=== PATIENT | male | born 1965 | race African-American/Black ===

== ENCOUNTER 2018-03-13 11:37 | Inpatient (IN) | payer OTHER, MEDICAID ==
[2018-03-13] MEDS: DIATR MEGLU/DIATRIZOATE SODIUM 120 ML BTL PO (13:21)
[2018-03-13 13:55] LABS: AADO2 Arterial 70.7 mmHg (7.0-24.0); Allen Test ACCEPTAB; Arterial Base Excess 2.2 mmol/L (-3.0-3); Arterial Blood Gas Oxygen Sat 95.4 mmHG (95.0-98.0); Arterial COHb 0.1 % (0.0-3.0); Arterial Fraction of Oxyhgb 94.9 % (93.0-99.0); Arterial HCO3 27.5 mmol/L (22.0-26.0); Arterial MetHb 0.4 % (0.0-1.5); Arterial Total Hemglobin 15.3 g/dl (12.0-18.0); Arterial pCO2 45.2 mmhg (35-45); MODE TRACH COLLAR; Site Right Radial
[2018-03-13 17:51] LABS: WHITE BLOOD COUNT 4.8 10^3/ul (4.8-10.8)
[2018-03-13 17:51] LABS: HEMATOCRIT 44.5 % (42.0-52.0); HEMOGLOBIN 14.8 g/dl (14.0-18.0); MEAN CORPUSCULAR HEMOGLOBIN 29.1 pg (29.0-33.0); MEAN CORPUSCULAR HGB CONC 33.3 g/dl (32.0-37.0); MEAN CORPUSCULAR VOLUME 87.4 fl (82.0-101.0); MEAN PLATELET VOLUME 10.2 fl (7.4-10.4); PLATELET COUNT 328 10^3/UL (140-415); RED BLOOD COUNT 5.09 10^6/ul (4.70-6.10); RED CELL DISTRIBUTION WIDTH 14.6 % (11.5-14.5)
[2018-03-13 17:52] LABS: ADD MAN DIFF? YES
[2018-03-13] MEDS: SOD CHLORIDE 0.9% 1,000 ML IV (17:58)
[2018-03-13 18:11] LABS: INR 1.09; PARTIAL THROMBOPLASTIN TIME 34.3 Sec (25.0-35.0); PROTIME 14.2 Sec (11.9-14.9); PT RATIO 1.1
[2018-03-13 18:49] LABS: ANISOCYTOSIS 1+ (0-0); EOSINOPHILS % (M) 14 % (0-7); GIANT THROMBO% (M) 1 % (0-0); LYMPHOCYTES #M 1.5 10^3/ul (0.8-2.9); LYMPHOCYTES % (M) 33 % (15-51); MICROCYTOSIS 1+ (0-0); MONOCYTE #M 0.7 10^3/ul (0.3-0.9); MONOCYTES % (M) 15 % (0-11); PLATELET ESTIMATE NORMAL; REACTIVE LYMPHOCYTES% (M) 2 % (0-0); SEGMENTED NEUTROPHILS (M) % 36 % (39-77); SMUDGE%M 4 % (0-0)
[2018-03-13] MEDS ORDERED: NACL 0.9% 3 ML SYG IV (19:00)
[2018-03-13] MEDS ORDERED: HEPARIN SODIUM PORCINE IJ (19:00)
[2018-03-13] MEDS ORDERED: morphine 2 MG INJ IV (19:00)
[2018-03-13] MEDS ORDERED: HYDROCODONE/APAP (5/325) TAB PO (19:00)
[2018-03-13] MEDS ORDERED: [UNRECOGNIZED DRUG - OTHER] IJ (19:00)
[2018-03-13] MEDS ORDERED: LORAZEPAM 2 MG INJ IV (19:00)
[2018-03-13] MEDS ORDERED: NITROGLYCERIN (SL) 0.4 MG TAB SL (19:00)
[2018-03-13] MEDS ORDERED: NA PHOSPHATE/BIPHOS 133 ML ENEMA PR (19:00)
[2018-03-13] MEDS ORDERED: ONDANSETRON 4 MG INJ IV (19:00)
[2018-03-13] MEDS ORDERED: hydrALAzine 20 MG INJ IV (19:00)
[2018-03-13] MEDS ORDERED: ALBUTEROL/IPRATROPIUM (NEB) 3 ML AMP HHN (19:00)
[2018-03-13] MEDS ORDERED: DOCUSATE SODIUM 100 MG CAP PO (19:00)
[2018-03-13 19:18] LABS: ALANINE AMINOTRANSFERASE 62 IU/L (13-69); ALBUMIN 4.6 g/dl (3.3-4.9); ALBUMIN/GLOBULIN RATIO 1.15; ALKALINE PHOSPHATASE 430 IU/L (42-121); ANION GAP 11 (8-16); ASPARTATE AMINO TRANSFERASE 53 IU/L (15-46); BILIRUBIN,INDIRECT 0.4 mg/dl (0-1.1); BILIRUBIN,TOTAL 0.4 mg/dl (0.2-1.3); BLOOD UREA NITROGEN 10 mg/dl (7-20); CALCIUM 9.7 mg/dl (8.4-10.2); CARBON DIOXIDE 27 mmol/L (21-31); CHLORIDE 106 mmol/L (97-110); CREATININE 0.71 mg/dl (0.61-1.24); GLUCOSE 100 mg/dl (70-220); LIPASE 247 U/L (23-300); POTASSIUM 4.8 mmol/L (3.5-5.1); SODIUM 139 mmol/L (135-144); TOTAL PROTEIN 8.6 g/dl (6.1-8.1)
[2018-03-13 20:52] LABS: FREE T4 (FREE THYROXINE) 1.19 ng/dl (0.64-1.79)
[2018-03-13] MEDS: HEPARIN 5,000 UNIT/0.5 ML VIAL SC (21:30)
[2018-03-13] MEDS: SOD CHLORIDE 0.45% 1,000 ML IV (21:31)
[2018-03-14] MEDS ORDERED: PENDING SANTYL ORDER FOR WOUND CARE XX (02:00)
[2018-03-14] MEDS ORDERED: DEXTROSE 50% 50 ML SYRINGE IV ×2 (04:30)
[2018-03-14] MEDS ORDERED: GLUCAGON 1 MG INJ IM (04:30)
[2018-03-14] MEDS ORDERED: GLUCOSE GEL 15 GRAM TUBE BUCCAL (04:30)
[2018-03-14] MEDS ORDERED: GLUCOSE GEL 15 GRAM TUBE PO ×2 (04:30)
[2018-03-14] MEDS ORDERED: PANTOPRAZOLE 40 MG INJ (04:43)
[2018-03-14] MEDS: DEXTROSE 5%-0.45% NACL 1,000 ML IV ×2 (04:45→17:48)
[2018-03-14] MEDS: INSULIN ASPART [NOVOLOG] 3 ML PEN SC ×5 (05:00→20:59)
[2018-03-14] MEDS: PANTOPRAZOLE 40 MG INJ IV (05:01)
[2018-03-14 05:46] LABS: ADD MAN DIFF? NO
[2018-03-14 05:49] LABS: BASOPHIL # 0.1 10^3/ul (0.0-0.1); BASOPHILS % 1.2 % (0.0-2.0); EOSINOPHILS # 0.6 10^3/ul (0.0-0.5); EOSINOPHILS % 11.4 % (0.0-7.0); HEMATOCRIT 42.2 % (42.0-52.0); HEMOGLOBIN 13.7 g/dl (14.0-18.0); LYMPHOCYTES # 1.2 10^3/ul (0.8-2.9); LYMPHOCYTES % 23.3 % (15.0-51.0); MEAN CORPUSCULAR HEMOGLOBIN 28.3 pg (29.0-33.0); MEAN CORPUSCULAR HGB CONC 32.5 g/dl (32.0-37.0); MEAN CORPUSCULAR VOLUME 87.2 fl (82.0-101.0); MEAN PLATELET VOLUME 10.6 fl (7.4-10.4); MONOCYTE # 0.8 10^3/ul (0.3-0.9); MONOCYTES % 14.9 % (0.0-11.0); NEUTROPHIL # 2.4 10^3/ul (1.6-7.5); NEUTROPHILS % 48.6 % (39.0-77.0); PLATELET COUNT 314 10^3/UL (140-415); RED BLOOD COUNT 4.84 10^6/ul (4.70-6.10); RED CELL DISTRIBUTION WIDTH 14.9 % (11.5-14.5)
[2018-03-14 05:59] LABS: HEMOGLOBIN A1C 5.8 % (0-5.9)
[2018-03-14 06:13] LABS: CHOLESTEROL 250 mg/dl (100-200)
[2018-03-14 06:13] LABS: HDL CHOLESTEROL 50 mg/dl (28-71); LDL CHOLESTEROL,CALCULATED 187 mg/dl; TRIGLYCERIDES 64 mg/dl (0-149)
[2018-03-14 08:10] LABS: ANION GAP 11 (8-16); BLOOD UREA NITROGEN 10 mg/dl (7-20); CALCIUM 9.2 mg/dl (8.4-10.2); CARBON DIOXIDE 23 mmol/L (21-31); CHLORIDE 111 mmol/L (97-110); CREATININE 0.68 mg/dl (0.61-1.24); GLUCOSE 95 mg/dl (70-220); MAGNESIUM 1.9 mg/dl (1.7-2.5); PHOSPHORUS 3.2 mg/dl (2.5-4.9); POTASSIUM 4.2 mmol/L (3.5-5.1); SODIUM 141 mmol/L (135-144)
[2018-03-14] MEDS: HEPARIN 5,000 UNIT/0.5 ML VIAL SC ×2 (08:43→21:04)
[2018-03-14 10:02] LABS: HEPATITIS B SURFACE ANTIGEN NEGATIVE (NEGATIVE)
[2018-03-14 10:19] LABS: HEPATITIS C VIRAL ANTIBODY NEGATIVE (NEGATIVE); HIV 1&2 ANTIBODY NEGATIVE (NEGATIVE)
[2018-03-15] MEDS: INSULIN ASPART [NOVOLOG] 3 ML PEN SC ×6 (01:00→21:00)
[2018-03-15] MEDS: PANTOPRAZOLE 40 MG INJ IV (05:19)
[2018-03-15] MEDS: DEXTROSE 5%-0.45% NACL 1,000 ML IV ×2 (05:19→20:02)
[2018-03-15 05:32] LABS: ADD MAN DIFF? NO
[2018-03-15 05:34] LABS: BASOPHILS % 0.5 % (0.0-2.0); EOSINOPHILS # 0.4 10^3/ul (0.0-0.5); EOSINOPHILS % 10.8 % (0.0-7.0); HEMATOCRIT 39.3 % (42.0-52.0); HEMOGLOBIN 13.2 g/dl (14.0-18.0); LYMPHOCYTES # 1.1 10^3/ul (0.8-2.9); LYMPHOCYTES % 28.9 % (15.0-51.0); MEAN CORPUSCULAR HEMOGLOBIN 29.5 pg (29.0-33.0); MEAN CORPUSCULAR HGB CONC 33.6 g/dl (32.0-37.0); MEAN CORPUSCULAR VOLUME 87.7 fl (82.0-101.0); MEAN PLATELET VOLUME 10.8 fl (7.4-10.4); MONOCYTE # 0.5 10^3/ul (0.3-0.9); MONOCYTES % 13.4 % (0.0-11.0); NEUTROPHIL # 1.7 10^3/ul (1.6-7.5); NEUTROPHILS % 45.9 % (39.0-77.0); PLATELET COUNT 261 10^3/UL (140-415); RED BLOOD COUNT 4.48 10^6/ul (4.70-6.10); RED CELL DISTRIBUTION WIDTH 14.4 % (11.5-14.5)
[2018-03-15 05:34] LABS: WHITE BLOOD COUNT 3.8 10^3/ul (4.8-10.8)
[2018-03-15 06:23] LABS: ANION GAP 10 (8-16); BLOOD UREA NITROGEN 7 mg/dl (7-20); CALCIUM 9.2 mg/dl (8.4-10.2); CARBON DIOXIDE 24 mmol/L (21-31); CHLORIDE 110 mmol/L (97-110); CREATININE 0.65 mg/dl (0.61-1.24); GLUCOSE 101 mg/dl (70-220); SODIUM 140 mmol/L (135-144)
[2018-03-15] MEDS: HEPARIN 5,000 UNIT/0.5 ML VIAL SC ×2 (09:09→20:33)
[2018-03-15] MEDS ORDERED: ALBUTEROL 0.083% (NEB) 2.5 MG/3 ML AMP NEB ×2 (12:00)
[2018-03-15] MEDS: PHENOBARBITAL 32.4 MG TAB GTB ×3 (12:20→23:57)
[2018-03-15] MEDS: SACCHAROMYCES BOULARDII 250 MG CAP GTB ×2 (14:51→20:30)
[2018-03-16] MEDS: INSULIN ASPART [NOVOLOG] 3 ML PEN SC ×6 (01:00→21:00)
[2018-03-16 05:31] LABS: ADD MAN DIFF? NO
[2018-03-16 05:35] LABS: BASOPHILS % 0.7 % (0.0-2.0); EOSINOPHILS # 0.4 10^3/ul (0.0-0.5); EOSINOPHILS % 9.6 % (0.0-7.0); HEMATOCRIT 39.3 % (42.0-52.0); HEMOGLOBIN 13.2 g/dl (14.0-18.0); LYMPHOCYTES # 0.8 10^3/ul (0.8-2.9); LYMPHOCYTES % 17.4 % (15.0-51.0); MEAN CORPUSCULAR HEMOGLOBIN 28.8 pg (29.0-33.0); MEAN CORPUSCULAR HGB CONC 33.6 g/dl (32.0-37.0); MEAN CORPUSCULAR VOLUME 85.8 fl (82.0-101.0); MEAN PLATELET VOLUME 10.9 fl (7.4-10.4); MONOCYTE # 0.6 10^3/ul (0.3-0.9); MONOCYTES % 12.8 % (0.0-11.0); NEUTROPHIL # 2.7 10^3/ul (1.6-7.5); NEUTROPHILS % 59.3 % (39.0-77.0); PLATELET COUNT 274 10^3/UL (140-415); RED BLOOD COUNT 4.58 10^6/ul (4.70-6.10); RED CELL DISTRIBUTION WIDTH 14.1 % (11.5-14.5)
[2018-03-16 05:35] LABS: WHITE BLOOD COUNT 4.6 10^3/ul (4.8-10.8)
[2018-03-16] MEDS: PHENOBARBITAL 32.4 MG TAB GTB ×3 (05:36→18:41)
[2018-03-16] MEDS: PANTOPRAZOLE 40 MG INJ IV (05:37)
[2018-03-16 06:04] LABS: ANION GAP 11 (8-16); BLOOD UREA NITROGEN 6 mg/dl (7-20); CALCIUM 9.1 mg/dl (8.4-10.2); CARBON DIOXIDE 25 mmol/L (21-31); CHLORIDE 107 mmol/L (97-110); CREATININE 0.53 mg/dl (0.61-1.24); GLUCOSE 161 mg/dl (70-220); POTASSIUM 3.7 mmol/L (3.5-5.1); SODIUM 139 mmol/L (135-144)
[2018-03-16] MEDS: DEXTROSE 5%-0.45% NACL 1,000 ML IV (09:58)
[2018-03-16] MEDS: SACCHAROMYCES BOULARDII 250 MG CAP GTB ×3 (10:00→20:30)
[2018-03-16] MEDS: HEPARIN 5,000 UNIT/0.5 ML VIAL SC ×2 (10:01→20:59)
[2018-03-16] MEDS ORDERED: morphine LIQ (10 MG/5 ML) CUP PO (13:00)
[2018-03-16] MEDS: ACETAMINOPHEN 325 MG TAB PO (21:08)
[2018-03-17] MEDS: DEXTROSE 5%-0.45% NACL 1,000 ML IV (00:10)
[2018-03-17] MEDS: INSULIN ASPART [NOVOLOG] 3 ML PEN SC ×5 (01:00→18:00)
[2018-03-17] MEDS: PHENOBARBITAL 32.4 MG TAB GTB ×4 (02:22→17:45)
[2018-03-17] MEDS: PANTOPRAZOLE 40 MG INJ IV (05:19)
[2018-03-17 06:42] LABS: ADD MAN DIFF? NO
[2018-03-17 06:47] LABS: WHITE BLOOD COUNT 4.7 10^3/ul (4.8-10.8)
[2018-03-17 06:47] LABS: BASOPHILS % 0.4 % (0.0-2.0); EOSINOPHILS # 0.6 10^3/ul (0.0-0.5); HEMATOCRIT 38.8 % (42.0-52.0); HEMOGLOBIN 12.7 g/dl (14.0-18.0); LYMPHOCYTES # 1.1 10^3/ul (0.8-2.9); LYMPHOCYTES % 22.6 % (15.0-51.0); MEAN CORPUSCULAR HEMOGLOBIN 28.5 pg (29.0-33.0); MEAN CORPUSCULAR HGB CONC 32.7 g/dl (32.0-37.0); MEAN CORPUSCULAR VOLUME 87.2 fl (82.0-101.0); MEAN PLATELET VOLUME 12.2 fl (7.4-10.4); MONOCYTE # 0.6 10^3/ul (0.3-0.9); MONOCYTES % 11.8 % (0.0-11.0); NEUTROPHIL # 2.5 10^3/ul (1.6-7.5); NEUTROPHILS % 52.8 % (39.0-77.0); POSITIVE DIFF @See below; RED BLOOD COUNT 4.45 10^6/ul (4.70-6.10); RED CELL DISTRIBUTION WIDTH 14.3 % (11.5-14.5)
[2018-03-17 07:06] LABS: PLATELET COUNT 168 10^3/UL (140-415)
[2018-03-17 07:14] LABS: ANION GAP 11 (8-16); BLOOD UREA NITROGEN 5 mg/dl (7-20); CALCIUM 8.6 mg/dl (8.4-10.2); CARBON DIOXIDE 23 mmol/L (21-31); CHLORIDE 108 mmol/L (97-110); CREATININE 0.63 mg/dl (0.61-1.24); GLUCOSE 116 mg/dl (70-220); POTASSIUM 3.7 mmol/L (3.5-5.1); SODIUM 138 mmol/L (135-144)
[2018-03-17 07:23] LABS: ALANINE AMINOTRANSFERASE 88 IU/L (13-69); ALBUMIN 3.5 g/dl (3.3-4.9); ALKALINE PHOSPHATASE 244 IU/L (42-121); ASPARTATE AMINO TRANSFERASE 106 IU/L (15-46); BILIRUBIN,INDIRECT 0.4 mg/dl (0-1.1); BILIRUBIN,TOTAL 0.4 mg/dl (0.2-1.3); TOTAL PROTEIN 6.7 g/dl (6.1-8.1)
[2018-03-17] MEDS: HEPARIN 5,000 UNIT/0.5 ML VIAL SC ×2 (09:06→20:18)
[2018-03-18] MEDS: PHENOBARBITAL 32.4 MG TAB GTB ×4 (01:06→17:50)
[2018-03-18] MEDS: INSULIN ASPART [NOVOLOG] 3 ML PEN SC ×4 (01:10→17:52)
[2018-03-18 05:36] LABS: ADD MAN DIFF? NO
[2018-03-18 05:41] LABS: WHITE BLOOD COUNT 5.1 10^3/ul (4.8-10.8)
[2018-03-18 05:41] LABS: BASOPHILS % 0.6 % (0.0-2.0); EOSINOPHILS # 0.6 10^3/ul (0.0-0.5); EOSINOPHILS % 11.9 % (0.0-7.0); LYMPHOCYTES # 0.9 10^3/ul (0.8-2.9); LYMPHOCYTES % 18.4 % (15.0-51.0); MEAN CORPUSCULAR HEMOGLOBIN 28.4 pg (29.0-33.0); MEAN CORPUSCULAR HGB CONC 33.3 g/dl (32.0-37.0); MEAN CORPUSCULAR VOLUME 85.2 fl (82.0-101.0); MEAN PLATELET VOLUME 10.8 fl (7.4-10.4); MONOCYTE # 0.5 10^3/ul (0.3-0.9); MONOCYTES % 9.8 % (0.0-11.0); NEUTROPHILS % 58.9 % (39.0-77.0); PLATELET COUNT 269 10^3/UL (140-415); RED BLOOD COUNT 4.58 10^6/ul (4.70-6.10); RED CELL DISTRIBUTION WIDTH 14.1 % (11.5-14.5)
[2018-03-18 06:34] LABS: ANION GAP 10 (8-16); BLOOD UREA NITROGEN 7 mg/dl (7-20); CALCIUM 8.9 mg/dl (8.4-10.2); CARBON DIOXIDE 26 mmol/L (21-31); CHLORIDE 108 mmol/L (97-110); CREATININE 0.57 mg/dl (0.61-1.24); GLUCOSE 125 mg/dl (70-220); POTASSIUM 3.7 mmol/L (3.5-5.1); SODIUM 140 mmol/L (135-144)
[2018-03-18] MEDS: HEPARIN 5,000 UNIT/0.5 ML VIAL SC (08:44)
[2018-03-18] MEDS: MAGNESIUM HYDROXIDE 30ML CUP PO (14:06)
[2018-03-23 14:06] LABS: ALKALINE PHOSPHATASE 345 U/L (40-115); BONE ISOENZYMES 18 % (28-66); INTESTINAL ISOENZYMES 0 % (1-24); LIVER ISOENZYMES 82 % (25-69); PLACENTAL ISOENZYMES 0 % (0)
== END 2018-03-18 20:39 | DRG 388 ==
LOC: E/R 11:37 → PP2 17:50
DX: K56.7 Ileus, unspecified (principal); G93.40 Encephalopathy, unspecified; Z93.0 Tracheostomy status; R11.2 Nausea with vomiting, unspecified; Z93.1 Gastrostomy status; I10 Essential (primary) hypertension; F41.8 Other specified anxiety disorders; I69.965 Other paralytic syndrome following unspecified cerebrovascular disease, bilateral; I69.391 Dysphagia following cerebral infarction
CPT/HCPCS: 36600; 71045; 74176; 76700; 80048; 80053; 80061; 80076; 82803; 82962; 83036; 83690; 83735; 84080; 84100; 84439; 84443; 85025; 85610; 85730; 86703; 86803; 87075; 87081; 87177; 87340; 92610; 99285-25